=== PATIENT | female | born 1960 | race Caucasian/White ===

== ENCOUNTER → 2017-12-04 | Outpatient (CLI) | payer OTHER ==
[~2017-12-04] MED LIST: GADOBUTROL 7.5 MMOL/7.5 ML VIAL ONE
== END | disposition home or self-care (01) ==
LOC: CFH 07:55
PROVIDERS: ATTEND Specialist
DX: G31.9 Degenerative disease of nervous system, unspecified (principal); R90.82 White matter disease, unspecified; M50.223 Other cervical disc displacement at C6-C7 level; M48.02 Spinal stenosis, cervical region; D18.09 Hemangioma of other sites
CPT/HCPCS: 70553; 72156; 82565; A9585

== ENCOUNTER → 2018-04-15 | Outpatient (CLI) | payer OTHER ==
[~2018-04-15] MED LIST changes: +GADOBUTROL 7.5 MMOL/7.5 ML PFS ONE; -GADOBUTROL 7.5 MMOL/7.5 ML VIAL ONE
== END | disposition home or self-care (01) ==
LOC: CFH 12:43
PROVIDERS: ATTEND Family Medicine
DX: G31.9 Degenerative disease of nervous system, unspecified (principal); I67.82 Cerebral ischemia; R90.82 White matter disease, unspecified; M47.895 Other spondylosis, thoracolumbar region
CPT/HCPCS: 70551; 72157; A9585

== ENCOUNTER → 2018-05-27 | Outpatient (CLI) | payer OTHER | END | disposition home or self-care (01) | LOC: RAD 08:28 | PROVIDERS: ATTEND Psychiatry & Neurology Neurology | DX: E04.1 Nontoxic single thyroid nodule (principal); E21.0 Primary hyperparathyroidism | CPT/HCPCS: 76536 ==

== ENCOUNTER → 2018-12-04 | Outpatient (CLI) | payer OTHER | END | disposition home or self-care (01) | LOC: CARD 08:06 | PROVIDERS: ATTEND Specialist | DX: R41.3 Other amnesia (principal); R26.0 Ataxic gait | CPT/HCPCS: 95819 ==